=== PATIENT | male | born 1980 | race Caucasian/White ===

== ENCOUNTER 2021-06-21 21:39 | Emergency (ER) | payer BC, SELFPAY ==
[2021-06-21] MEDS ORDERED: Ibuprofen 200 MG TAB ONE (22:29)
== END 2021-06-21 23:04 | disposition home or self-care (01) ==
LOC: ERS 21:39
DX: J20.9 Acute bronchitis, unspecified (principal)
CPT/HCPCS: 71045; 94640; J7620

== ENCOUNTER 2021-09-05 18:07 | Emergency (ER) | payer BC ==
[2021-09-05] MEDS ORDERED: Ibuprofen 800 MG TAB ONE (21:50)
[2021-09-05] MEDS ORDERED: Acetaminophen 325 MG TAB ONE (21:50)
[2021-09-06 11:55] LABS: SARS-CoV-2 PCR by NAA Not Detected (NotDetected)
== END 2021-09-05 23:20 | disposition home or self-care (01) ==
LOC: ERS 18:07
DX: J00 Acute nasopharyngitis [common cold] (principal); Z20.822 Contact with and (suspected) exposure to COVID-19; F17.290 Nicotine dependence, other tobacco product, uncomplicated
CPT/HCPCS: 87081; 87430; 87804; 99283; U0003; U0005

== ENCOUNTER 2023-03-25 15:58 | Outpatient (CLI) | payer BC | END 2023-03-25 15:59 | disposition home or self-care (01) | LOC: RAD 15:58 | PROVIDERS: ATTEND Student in an Organized Health Care Education/Training Program | DX: M75.22 Bicipital tendinitis, left shoulder (principal) ==